=== PATIENT | male | born 1975 | race African-American/Black ===

== ENCOUNTER 2019-01-04 05:58 | Emergency (ER) | payer OTHER ==
[~2019-01-04] VITALS: Ht 185.4 cm; Wt 108.0 kg
--- NOTE | 2019-01-04 06:05 | NUR ---
PT BIB [facility] IN [facility]. PT WAS TRIAGED AND TAKEN TO ER 7. PT AMBULATED IN HANDCUFFS WITH A STEADY GAIT.
--- NOTE | 2019-01-04 06:20 | NUR ---
DR ADAMS IS AT THE BEDSIDE.
[2019-01-04] MEDS ORDERED: LISINOPRIL (20MG) 20 MG TABLET PO STA (06:29)
[2019-01-04] MEDS ORDERED: HYDROCHLOROTHIAZIDE 25 MG TABLET PO STA (06:29)
[2019-01-04] MEDS ORDERED: HYDROCHLOROTHIAZIDE 25 MG TABLET ONE (06:34)
--- NOTE | 2019-01-04 06:48 | NUR ---
Patient discharged to [facility] in stable condition. Written and verbal after care instructions given. Patient verbalizes understanding of instruction. PT AMBULATED OUT IN HANDCUFFS WITH A STEADY GAIT. VSS. NAD NOTED.
[2019-01-04 06:50] VITALS: BP 156/89
[2019-01-04] MEDS ORDERED: BACI/NEOM/POLY B OINT PKT 1 UDPKT PACKET TP ONE (07:00)
== END 2019-01-04 06:53 ==
LOC: ER 06:01
DX: S00.01XA Abrasion of scalp, initial encounter (principal); I10 Essential (primary) hypertension; F32.9 Major depressive disorder, single episode, unspecified; F90.9 Attention-deficit hyperactivity disorder, unspecified type; V49.49XA Driver injured in collision with other motor vehicles in traffic accident, initial encounter; Y93.89 Activity, other specified; Y92.415 Exit ramp or entrance ramp of street or highway as the place of occurrence of the external cause; Y99.8 Other external cause status